=== PATIENT | male | born 1965 | race Caucasian/White ===

== ENCOUNTER 2023-06-03 07:45 | Emergency (ER) | payer SELFPAY ==
--- NOTE | ~2023-06-03 | XR_ITS ---
XR finger 3rd LT min 2V DATE: 06/03/2023 08:02 INDICATION: Middle finger amputation injury TECHNIQUE: 3 views COMPARISON: None FINDINGS: There is partial amputation of the distal dorsal soft tissues of the third digit including part of the tuft of the distal phalanx. No other fracture or dislocation is detected. 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 IMPRESSION: Partial amputation of the tuft and distal soft tissues of the third digit Reviewed, dictated and finalized at location B.
[2023-06-03 07:45] VITALS: TEMP 36
--- NOTE | 2023-06-03 07:52 | ED.UPPEXIN ---
HPI - Extremity Injury (Upper) General Chief Complaint: Wound/Laceration Stated Complaint: left 3rd finger amputation Time Seen by Provider: 06/03/23 07:50 Source: patient and family Mode of arrival: ambulatory Limitations: no limitations History of Present Illness HPI narrative: Patient is a 57-year-old male with a left hand middle finger distal tip injury prior to arrival. Minimal pain with a 1/10. Tetanus is not up-to-date. Patient was lifting a trailer and got the tip of his finger caught and the trailer drop down and remove the tip of the finger with the nail. complaint: injury to: left Onset (ago): minute(s) Other Extremity Injury: Left: fingers ( Middle) Other injuries: none Place: home Severity: mild Severity scale (1-10): 1 Relieving factors: none Exacerbating factors: none Context: direct blow, crush and injury Associated symptoms: denies other symptoms Treatments prior to arrival: bandage Related Data Allergies Allergy/AdvReac Type Severity Reaction Status Date / Time No Known Allergies Allergy Verified 06/03/23 07:55 Review of Systems Review of Systems: All systems reviewed & are unremarkable except as noted in HPI and below Constitutional: Constitutional: Reports no additional constitutional complaints Eyes: Eyes: Reports no additional eye complaints ENT: Reports system reviewed and no additional complaints, except as documented Cardiovascular: Cardiovascular: Reports no additional cardiovascular complaints Respiratory: Respiratory: Reports no additional respiratory complaints Gastrointestinal: Gastrointestinal: Reports no additional gastrointestinal complaints Genitourinary: Genitourinary: Reports no additional male genitourinary complaints Musculoskeletal: Musculoskeletal: Reports no additional musculoskeletal complaints Integumentary/Breasts: Skin/Breast: Reports system reviewed and no additional complaints, except as docu Neurologic: Reports system reviewed and no additional complaints, except as documented Psychiatric: Psychiatric: Reports no additional psychiatric complaints Endocrine: Endocrine: Reports no additional endocrine complaints Hematologic/Lymphatic: Hematologic/Lymphatic: Reports no additional hematologic/lymphatic complaints Allergic/Immunologic: Allergic/Immunologic: Reports no additional allergic/immunologic complaints Exam Const: General: healthy appearing Nutritional Appearance: well nourished Orientation/consciousness: patient oriented x3 HENMT: Head: normal to inspection Ears: external ears normal Face/Nose/Sinus: Normal external nose present Eyes: Conjunctivae: conjunctivae normal Pupils: Equal, round and reactive pupils present EOM: EOMs intact bilaterally Neck: Neck: normal visual inspection Chest: Chest palpation & inspection: normal inspection of the chest Resp: Effort & Inspection: normal respiratory effort Auscultation: clear to auscultation bilaterally and no crackles Cardio: Rate: regular rate Rhythm: regular rhythm Heart sounds: no murmurs GI: Inspection: non-distended GI Palp: Yes Soft to palpation and No Tenderness to palpation present (GI) : General: Yes bladder normal to palpation Back/Spine/Pelvis: Back: no CVA tenderness Skin: Other: left hand middle finger distal tip avulsion/amputation complete to include the nail and the bed; no acute bleeding Neuro: General: patient oriented x3, moves all extremities and no meningeal signs Extrem: General: normal to inspection, no clubbing, cyanosis or edema and no pedal edema Other: see skin exam Psych: Mental Status: mental status grossly normal Affect: normal affect Attitude: cooperative Course Vital Signs Vital signs: Vital Signs Temperature 36.0 C L 06/03/23 07:45 Oxygen Delivery Room Air 06/03/23 07:45 Temperature 36.0 C L 06/03/23 07:45 Pulse Rate 70 06/03/23 09:12 Respiratory Rate 14 06/03/23 09:12 Blood Pressure 146/97 H
[2023-06-03 07:55] VITALS: BP 152/106; PULSE 75; RESP 16; O2SAT 97
[2023-06-03] MEDS: TETANUS,DIPHTHERIA,AC PERTUSSIS ADULT 0.5 ML (ADACEL) IM (08:04)
[2023-06-03] MEDS: SILVER NITRATE (*SP) STICK 2 EACH TOPICAL (08:31)
[2023-06-03] MEDS: CEPHALEXIN 500 MG CAPSULE PO (08:36)
[2023-06-03 09:12] VITALS: BP 146/97; PULSE 70; RESP 14
== END 2023-06-03 09:25 | disposition home or self-care (01) ==
PROVIDERS: Emergency Provider Emergency Medicine
DX: S68.123A Partial traumatic metacarpophalangeal amputation of left middle finger, initial encounter (principal); W20.8XXA Other cause of strike by thrown, projected or falling object, initial encounter; Z23 Encounter for immunization
CPT/HCPCS: 73140; 90471; 90715; 99283; A9270